=== PATIENT | female | born 1990 | race Caucasian/White ===

== ENCOUNTER 2020-11-18 08:20 | Outpatient (REF) | payer MEDICAID, SELFPAY | END 2020-11-18 08:21 | disposition home or self-care (01) | LOC: HO.LAB 08:20 | PROVIDERS: Visit Provider Internal Medicine | DX: Z20.828 Contact with and (suspected) exposure to other viral communicable diseases (principal) | CPT/HCPCS: C9803; U0003 ==

== ENCOUNTER 2021-02-10 14:09 | Outpatient (REF) | payer MEDICAID, SELFPAY | END 2021-02-10 14:10 | disposition home or self-care (01) | LOC: HO.LAB 14:09 | PROVIDERS: Visit Provider Internal Medicine | DX: Z20.822 Contact with and (suspected) exposure to COVID-19 (principal) | CPT/HCPCS: 36415; C9803; U0003; U0005 ==

== ENCOUNTER 2021-04-10 15:39 | Outpatient (REF) | payer MEDICAID, SELFPAY | END 2021-04-10 15:40 | disposition home or self-care (01) | LOC: HO.LAB 15:39 | PROVIDERS: Visit Provider Internal Medicine | DX: Z20.822 Contact with and (suspected) exposure to COVID-19 (principal) | CPT/HCPCS: C9803; U0003; U0005 ==

== ENCOUNTER 2021-04-14 08:41 | Outpatient (REF) | payer MEDICAID, SELFPAY | END 2021-04-14 08:42 | disposition home or self-care (01) | LOC: HO.LAB 08:41 | PROVIDERS: Visit Provider Internal Medicine | DX: Z20.822 Contact with and (suspected) exposure to COVID-19 (principal) | CPT/HCPCS: C9803; U0003; U0005 ==

== ENCOUNTER 2021-06-14 12:03 | Outpatient (REF) | payer MEDICAID, SELFPAY ==
--- NOTE | ~2021-06-14 | XR_ITS ---
EXAMINATION: XR KNEE, LEFT CLINICAL INFORMATION: Left knee pain, effusion. COMPARISON: None. TECHNIQUE: 4 views of the left knee. FINDINGS: Bones and soft tissues are normal. No fracture or joint effusion. Alignment is anatomic. Joint spaces are well maintained. No abnormal soft tissue calcification. XR/XR knee LT 4V IMPRESSION: Unremarkable examination. No joint effusion.
== END 2021-06-14 12:04 | disposition home or self-care (01) ==
LOC: HO.XRAY 12:03
PROVIDERS: Visit Provider Registered Nurse
DX: M25.462 Effusion, left knee (principal); M25.562 Pain in left knee
CPT/HCPCS: 73564

== ENCOUNTER 2021-11-09 11:06 | Outpatient (REF) | payer MEDICAID, SELFPAY | END 2021-11-09 11:07 | disposition home or self-care (01) | LOC: HO.LAB 11:06 | PROVIDERS: Visit Provider Internal Medicine | DX: Z20.822 Contact with and (suspected) exposure to COVID-19 (principal) | CPT/HCPCS: C9803; U0003; U0005 ==

== ENCOUNTER 2021-12-22 09:10 | Outpatient (REF) | payer MEDICAID, SELFPAY ==
[2021-12-22 09:21] LABS: Binax Internal Control QC Valid; Binax Now Covid-19 Ag Negative (Negative)
== END 2021-12-22 09:11 | disposition home or self-care (01) ==
LOC: HO.LAB 09:10
PROVIDERS: PCP Internal Medicine; Visit Provider Internal Medicine
DX: Z20.822 Contact with and (suspected) exposure to COVID-19 (principal)
CPT/HCPCS: C9803

== ENCOUNTER 2022-01-15 10:01 | Outpatient (REF) | payer MEDICAID, SELFPAY | END 2022-01-15 10:02 | disposition home or self-care (01) | LOC: HO.LAB 10:01 | PROVIDERS: PCP Internal Medicine; Visit Provider Obstetrics & Gynecology | DX: R87.610 Atypical squamous cells of undetermined significance on cytologic smear of cervix (ASC-US) (principal); R87.810 Cervical high risk human papillomavirus (HPV) DNA test positive | CPT/HCPCS: 57454; 88305 ==

== ENCOUNTER → 2022-02-01 13:28 | Outpatient (BNVA) | payer MEDICAID, SELFPAY | PROVIDERS: PCP Internal Medicine; Visit Provider Obstetrics & Gynecology | DX: D06.9 Carcinoma in situ of cervix, unspecified (principal) | CPT/HCPCS: 99212 ==

== ENCOUNTER 2022-02-15 10:26 | Day surgery (SDC) | payer MEDICAID, SELFPAY ==
--- NOTE | 2022-02-14 09:32 | P.CONAN_ITS ---
Documented by User: Niurka José NP 02/14/22 09:32 HPI - Anesthesia Eval Consult details Narrative: 31yo F for Cone LEEP with post ECC PMFSH Active Problems Active Problems: All Active Problems (Updated 02/09/22 @ 14:29 by Brigitte Randolph RN) ASCUS with positive high risk HPV cervical (Acute) RALPH III (cervical intraepithelial neoplasia grade III) with severe dysplasia (Acute) Past Medical History Medical History Headache Family History Family History Maternal Aunt Breast CA Ovarian ca Maternal Aunt No problems noted. Surgical History Surgical History H/O hernia repair H/O tubal ligation Social History Social History Patient Tobacco Use Status: Never used Tobacco Use of substances other than those prescribed or required for medical reasons: No Are you DNR?: No Advance Directives: No Advance Directives Information Provided: Yes Recently lost weight without trying: No Patient : No (tubal ligation, hcg neg) Meds Allergies Allergy/AdvReac Type Severity Reaction Status Date / Time No Known Allergies Allergy Unverified 02/09/22 14:29 [No Known Allergies*] Home Medications Medication Instructions Recorded Confirmed Last Taken Type amitriptyline 10 mg tablet 1 tab PO BEDTIME 02/09/22 02/09/22 Unknown History cholecalciferol (vitamin D3) 1,250 1 cap PO QWEEK 02/09/22 02/09/22 Unknown History mcg (50,000 unit) capsule naproxen 500 mg tablet 1 tab PO BID PRN 02/09/22 02/09/22 Unknown History sennosides 8.6 mg tablet (senna) 2 tab PO DAILY 02/09/22 02/09/22 Unknown History sumatriptan succinate 50 mg tablet 50 mg PO PRN 02/09/22 Unknown History Exam Exam Date and Time: February 14, 2022 0932 Assessment and Plan Assessment Anesthesia Assessment: Chart Reviewed Documented by User: Clark Pulido MD 02/15/22 10:58 [facility] Past Medical History Medical History Headache Family History Family History Maternal Aunt Breast CA Ovarian ca Maternal Aunt No problems noted. Family history of problems with anesthesia: No Surgical History Surgical History H/O hernia repair H/O tubal ligation History of Problems with Anesthesia: No Social History Social History Patient Tobacco Use Status: Never used Tobacco Use of substances other than those prescribed or required for medical reasons: No Are you DNR?: No Advance Directives: No Advance Directives Information Provided: Yes Recently lost weight without trying: No Patient : No (tubal ligation, hcg neg) Meds Allergies Allergy/AdvReac Type Severity Reaction Status Date / Time No Known Allergies Allergy Unverified 02/09/22 14:29 [No Known Allergies*] Home Medications Medication Instructions Recorded Confirmed Last Taken Type amitriptyline 10 mg tablet 1 tab PO BEDTIME 02/09/22 02/09/22 Unknown History cholecalciferol (vitamin D3) 1,250 1 cap PO QWEEK 02/09/22 02/09/22 Unknown History mcg (50,000 unit) capsule naproxen 500 mg tablet 1 tab PO BID PRN 02/09/22 02/09/22 Unknown History sennosides 8.6 mg tablet (senna) 2 tab PO DAILY 02/09/22 02/09/22 Unknown History sumatriptan succinate 50 mg tablet 50 mg PO PRN 02/09/22 Unknown History Exam Airway Mallampati Class: II TM Dist: >3cm Neck ROM: Full Assessment and Plan Assessment Anesthesia Assessment: Anesthesia Plan Discussed Final Anesthetic Review Family History of Problems with Anesthesia: No History of Problems with Anesthesia: No NPO: Yes ASA Class: II Final Preanesthetic Review: No Changes in Pt Med Stat, Meds/Allgs Chart Reviewed, Consent Obtained/Reviewed and Anes Risks/Benef Reviewed Patient Risk: Intermediate Procedure Risk: Low Anesthetic Plan Anesthetic Plan: GA Disposition: Standard PACU
[2022-02-15] VITALS (10 sets, daily range): BP systolic 111–119; BP diastolic 60–65; PULSE 50–69; RESP 15–18; TEMP 36–36.4; O2SAT 96–100; BMI 31.7
[2022-02-15 10:49] LABS: UPreg QC Valid YES; Urine Pregnancy NEGATIVE (NEGATIVE)
[2022-02-15] MEDS: Lactated Ringers 1,000 ML 100 ML IVCONT (11:07)
--- NOTE | 2022-02-15 11:18 | MHC.SHP ---
Pre-Procedural Eval Section A Date of Service: 02/15/22 The patient is an INPATIENT: No Changes since office visit: No Cold of Flu in the past 2 weeks, No New Medical Problems, No Changes in Medication and No Patient answered all questions The History & Physical has been completed within 30 days and I have reviewed it.: Yes Section B Chief Complaint: RALPH 3 Allergies: Allergies Allergy/AdvReac Type Severity Reaction Status Date / Time No Known Allergies Allergy Unverified 02/09/22 14:29 [No Known Allergies*] Plan Diagnosis/Plan: Unchanged I have reviewed the history and physical and performed a pertinent physical examination on my patient. No changes have occurred unless specified.
--- NOTE | 2022-02-15 12:03 | PM.OP ---
Brief Operative Note Date of Service: 02/15/22 Pre-op diagnosis: RALPH 3 Post-op diagnosis: same Procedure: LEEP CONE with post CONE ECC Surgeon: Jaswant Garcia MD Anesthesia: local and other (Paracervical block with MAC) Was an [employer] used for this Procedure?: No Estimated blood loss (mL): 0 Pathology: other (Ant+post Cerv lip, 2nd pass posterior cervical lip at 04:00 o'clock, Endocx, Post cone ECC) Condition: stable Disposition: other (Home)
--- NOTE | 2022-02-15 12:04 | W.PM.OPN ---
Operative Note Operative Note Date of Service: 02/15/22 Narrative: Preop diagnosis: RALPH 3 Operation: LEEP Cone with post cone ECC Post op diagnosis: same Anesthesia: paracervical block with MAC Complications: none Pathology: Anterior and Posterior cervical lip, posterior lip 2nd pass at 04:00 o'clock, with endocervix & post cone ECC QBL: minimal Procedure: The patient was put in the dorsal lithotomy position, was prepped and draped in the usual sterile fashion. A sterile speculum was inserted inside the patient vagina. Using Lugol solution the cervix with Dyed with Lugol solution to identifiy the abnormal demarcating line. 10 cc of Marcaine 0.5% with epinephrine were given at 2,4 , 8, and 10 o'clock. Using a medium-size loop wire, the anterior cervical lip was excised followed by the posterior cervical lip, followed by 2nd pass posterior cervical lip at 04:00 o'clock, excision of the endocervix, post cone ECC was done afterwards. Hemostasis was assured using cautery and Monsel solution. All instruments were taken out of the patient's vaginal cavity. the patient tolerated the procedure well and was discharged home with the following instructions: call if temperature is above 100.4, vaginal bleeding, abdominal pain or nausea or vomiting. Follow-up in the office in 2 weeks for postop visit
[2022-02-15] MEDS: fentaNYL citrate/PF 100 MCG/2 ML VIAL 50 MCG IVPUSH (12:39)
[2022-02-15] MEDS: oxyCODONE HCl Immed Release 5 MG TABLET PO (12:39)
== END 2022-02-15 13:36 | disposition home or self-care (01) ==
PROVIDERS: PCP Internal Medicine; Visit Provider Obstetrics & Gynecology
PROC: 0UBC7ZZ Excision of Cervix, Via Natural or Artificial Opening (ICD-10-PCS; CPT 57522; principal; 2022-02-15 12:30)
DX: D06.9 Carcinoma in situ of cervix, unspecified (principal); Z98.51 Tubal ligation status
CPT/HCPCS: 57522; 81025; 88305; 88307; J1100; J1885; J2250; J2405; J3010

== ENCOUNTER → 2022-03-01 13:15 | Outpatient (BNVA) | payer MEDICAID, SELFPAY | PROVIDERS: Visit Provider Obstetrics & Gynecology | DX: Z13.89 Encounter for screening for other disorder (principal) ==

== ENCOUNTER 2022-07-10 07:36 | Emergency (ER) | payer MEDICAID, SELFPAY ==
[2022-07-10 07:49] VITALS: BP 110/80; PULSE 76; RESP 18; TEMP 36.4; O2SAT 98; BMI 31.7
[2022-07-10 08:09] LABS: COVID-19 Test Negative (Negative)
[2022-07-10 09:02] VITALS: BP 116/67; PULSE 67; RESP 12; TEMP 36.4; O2SAT 99
--- NOTE | 2022-07-10 09:20 | PC.NURSE ---
Pt A&Ox4, LCA, abd soft, non tender, +BS, no edema, c/o joint pain which has been worsening over the past month. Saw PCP who has been treating her with medication. Plan for UA, labs and medication for mild migrane at this time. Call barry within reach, will continue to monitor.
--- NOTE | 2022-07-10 09:21 | ED_ITS ---
HPI - General Adult General Chief complaint: General Medical Stated complaint: Body aches Time Seen by Provider: 07/10/22 09:02 Source: patient and court interpreter Mode of arrival: ambulatory Limitations: language barrier History of Present Illness HPI narrative: 31-year-old female with a history of migraines presents with 1 month of body aches that are described as joint pain with swelling and stiffness especially in the morning which improves throughout the day. Feels like her rings on her fingers are to tight. Patient complaining of some intermittent headaches, nausea, dizziness and malaise. Patient saw her primary care doctor and had some outpatient labs which she tells me showed some mild anemia otherwise were normal. She was referred to pain management but has not seen them yet. She has not seen Rheumatology before. She does have several family members with rheumatoid arthritis. She denies any associated fevers, chills, cough, shortness of breath, chest pain, abdominal pain, vomiting, diarrhea, weight loss, night sweats. Patient denies any vaginal discharge, rashes or lesions. She does report some urinary frequency. She does have irregular menses. She has not had any sexual partners recently. She is sexually active with 1 male partner and last had intercourse about 3 weeks ago. She is not concerned about STDs Related Data Home Medications Medication Instructions Recorded Confirmed amitriptyline 10 mg tablet 1 tab PO BEDTIME 02/09/22 02/09/22 cholecalciferol (vitamin D3) 1,250 1 cap PO QWEEK 02/09/22 02/09/22 mcg (50,000 unit) capsule naproxen 500 mg tablet 1 tab PO BID PRN pain 02/09/22 02/09/22 sennosides 8.6 mg tablet (senna) 2 tab PO DAILY constipation 02/09/22 02/09/22 sumatriptan succinate 50 mg tablet 50 mg PO PRN Headache 02/09/22 Allergies Allergy/AdvReac Type Severity Reaction Status Date / Time No Known Allergies Allergy Unverified 02/09/22 14:29 [No Known Allergies*] Review of Systems Review of Systems: Yes all other systems are reviewed and are negative Constitutional: Constitutional: Reports no additional constitutional complaints, Reports body ache(s), Denies chills, Denies fever(s), Reports headache(s) and Denies weakness Eyes: Eyes: Reports no additional eye complaints and Denies change in vision ENT: Reports system reviewed and no additional complaints, except as documented, Denies dizziness, Reports headache(s), Denies nasal congestion, Denies nasal discharge and Denies neck pain Cardiovascular: Cardiovascular: Reports no additional cardiovascular co mplaints, Denies chest pain, Denies leg edema and Denies dyspnea Respiratory: Respiratory: Reports no additional respiratory complaints, Denies cough and Denies dyspnea Gastrointestinal: Gastrointestinal: Reports no additional gastrointestinal complaints, Denies abdominal pain, Denies diarrhea, Reports nausea and Denies vomiting Genitourinary: Genitourinary: Reports no additional female genitourinary complaints and Denies urinary incontinence Musculoskeletal: Musculoskeletal: Reports no additional musculoskeletal complaints, Denies back pain, Reports myalgias, Reports arthralgias, Reports joint swelling, Denies neck pain, Denies numbness and Denies tingling Integumentary/Breasts: Skin/Breast: Reports system reviewed and no additional complaints, except as docu and Denies rash Neurologic: Reports system reviewed and no additional complaints, except as documented, Denies dizziness, Reports headache(s), Denies numbness, Denies tingling and Denies weakness [facility] Past Medical History Attestation statement: The following information was validated with the patient. Source: old records reviewed and nursing notes reviewed Medical History Headache Surgical History H/O hernia repair H/O tubal ligation Family History Family History Maternal Aunt Breast CA Ovarian ca Maternal Aunt No problems noted. Social History Social History Patient Tobacco Use Status: Never used Tobacco Advance Directives: No Advance Directives Information Provided: No Physical Exam ED Vital Signs: Vital Signs - 24 hr 07/10/22 07:49 07/10/22 09:02 Temperature 97.6 F 97.6 F Pulse Rate 76 67 Respiratory Rate 18 12 Blood Pressure 110/80 116/67 Pulse Oximetry 98 99 Oxygen Delivery Method Room Air Room Air BMI result Body Mass Index 31.7 Const General: cooperative, healthy appearing, comfortable, no acute distress and al ert Orientation/consciousness: patient oriented x3 Limitations: language barrier HENMT Head: Yes normal to inspection Ears: hearing grossly normal bilaterally General nose exam: Normal external nose present Face and sinus: Yes normal facial exam Mouth: Normal oral and palatal mucosa present Throat: Yes posterior oropharynx normal, Yes tonsils normal and Yes uvula midline Eyes General: appearance normal, both eyes and all related structures Pupils: Equal, round and reactive pupils present Neck Neck: Yes normal visual inspection, Yes full ROM, Yes no lymphadenopathy and Yes no meningeal signs Chest Chest palpation & inspection: normal inspection of the chest Resp Effort & Inspection: normal respiratory effort Auscultation: clear to auscultation bilaterally Cardio Rate: regular rate Rhythm: regular rhythm Peripheral pulses: Peripheral pulses 2+ throughout GI Inspection: Yes normal to inspection Palpation (GI): Soft to palpation and nontender General: Yes no CVA tenderness Back/Spine/Pelvis Back: no CVA tenderness Thoracic/Lumbar Spine: thoracic and lumbar spine normal to inspection Skin General skin exam: no rashes or lesions noted Neuro General: patient oriented x3, moves all extremities and no meningeal signs Cranial nerves: Yes CN's II-XII intact bilaterally, Yes Equal, round and reactive pupils present, Yes Bilaterally intact EOM present, Yes Nystagmus not present, Yes Normal facial strength present and Yes Midline tongue present Cognition (Neuro): normal cognition Gait exam (Neuro): Normal gait present Motor exam (neuro): 5/5 motor strength present throughout Sensory Exam: Normal double simultaneous stimulation for sensation Extrem Other: Patient has tenderness to the hands and wrist which is worsened with range of motion there is some swelling noted over the digits with no redness or warmth. Patient also has some tenderness over the entire bilateral ankles with slight swelling with full range of motion although painful. No redness or warmth Course Course Course Narrative: Reviewed labs show mild a microcytic anemia. Patient can supplement with iron and iron rich diet. Otherwise her labs are unremarkable. Consider underlying rheumatoid arthritis or inflammatory process although patient's inflammatory markers are negative. I did recommend she speak to her primary care doctor about a rheumatology consult. Her UA is negative her STD testing is pending. Patient will hold on treatment until her results are back. Improvement with Toradol. Reviewed worrisome signs and symptoms of when to return to the emergency d epartment. Comfortable discharge home. Medical Decision Making [facility] Narrative Medical decision making narrative: 31-year-old female who is healthy presents with polyarthralgia for 1 month with associated malaise and fatigue. No reports of fevers or chills. Patient also complaining of some headaches and dizziness with position changes. Seen by PCP and had labs which patient tells me were normal but are not available for review. Patient has multiple the members with history of RA reportedly. Overall nontoxic. Vitals are stable. Will check labs, provide analgesia. Differential Diagnosis Differential Diagnosis: RA, gonococcal arthritis, viral syndrome Medical Records Medical records reviewed: Yes I reviewed the patient's medical records. Lab Data Lab results reviewed: Yes I reviewed the patient's lab results. Result diagrams: 07/10/22 09:43 07/10/22 09:43 Labs: Lab Results 07/10/22 07/10/22 07/10/22 Range/Units 07:50 09:43 09:43 WBC 5.0 (4.8-10.8) X10*3/uL RBC 4.31 (4.20-5.50) X10*6/uL Hgb 11.2 L (12.0-16.0) g/dl Hct 35.7 L (37.0-47.0) % MCV 82.8 (80.0-98.0) fL MCH 26.0 L (27.0-33.0) pg MCHC 31.4 (31.0-35.0) g/dl RDW 15.9 (11.0-16.0) % Plt Count 166 (160-400) X10*3/uL MPV 11.7 (9.4-12.3) fL Immature Gran % (Auto) 0.4 (0.0-0.4) % Neut % (Auto) 58.1 (45-73) % Lymph % (Auto) 27.6 (20-40) % [place] % (Auto) 11.5 H (2-11) % Eos % (Auto) 1.8 (0-4) % Baso % (Auto) 0.6 (0-2) % Lymph # (Auto) 1.4 (1.2-4.9) X10*3/uL [place] # (Auto) 0.6 (0.1-1.2) X10*3/uL Eos # (Auto) 0.1 (0.0-0.4) X10*3/uL Baso # (Auto) 0.0 (0.0-0.2) X10*3/uL Abs Immat Gran (auto) 0.02 (0.00-0.03) X10*3/uL Absolute Neuts (auto) 2.9 (2.0-8.3) x10*3/uL Absolute Nucleated RBC 0.000 (0.0-0.012) X10*3/uL Nucleated RBC % (auto) 0.0 (0.0-0.2) /100WBC ESR 5 (0-20) MM/HR Sodium (135-145) mmol/L Potassium (3.3-5.1) mmol/L Chloride (96-108) mmol/L Carbon Dioxide (22-29) mmol/L Anion Gap (12-20) BUN (9-16) mg/dL Creatinine (0.5-1.4) mg/dL Estim Creat Clear Calc Estimated GFR Random Glucose (60-115) mg/dL Calcium (8.4-10.2) mg/dL Magnesium (1.6-2.6) mg/dL Total Bilirubin (0.0-1.0) mg/dL Direct Bilirubin (0.0-0.5) mg/dL AST (5-31) U/L ALT (0-31) U/L Alkaline Phosphatase (39-117) U/L Total Creatine Kinase (26-140) U/L C-Reactive Protein (< or = 0.50) mg/dL Total Protein (6.5-8.0) g/dL Albumin (3.5-5.0) g/dL Urine Color Urine Appearance Urine pH (5.0-8.0) Ur Specific [place] (1.005-1.025) Urine Protein (NEG-TRACE) MG/DL Urine Glucose (UA) (NEG) MG/DL Urine Ketones (NEG) MG/DL Urine Blood (NEG) Urine Nitrite (NEG) Ur Leukocyte Esterase (NEG) Urine Test (NEGATIVE) COVID-19 (TYLOR) Negative (Negative) COVID-19 Clin Com See Note 07/10/22 07/10/22 07/10/22 Range/Units 09:43 12:29 12:29 WBC (4.8-10.8) X10*3/uL RBC (4.20-5.50) X10*6/uL Hgb (12.0-16.0) g/dl Hct (37.0-47.0) % MCV (80.0-98.0) fL MCH (27.0-33.0) pg MCHC (31.0-35.0) g/dl RDW (11.0-16.0) % Plt Count (160-400) X10*3/uL MPV (9.4-12.3) fL Immature Gran % (Auto) (0.0-0.4) % Neut % (Auto) (45-73) % Lymph % (Auto) (20-40) % [place] % (Auto) (2-11) % Eos % (Auto) (0-4) % Baso % (Auto) (0-2) % Lymph # (Auto) (1.2-4.9) X10*3/uL [place] # (Auto) (0.1-1.2) X10*3/uL Eos # (Auto) (0.0-0.4) X10*3/uL Baso # (Auto) (0.0-0.2) X10*3/uL Abs Immat Gran (auto) (0.00-0.03) X10*3/uL Absolute Neuts (auto) (2.0-8.3) x10*3/uL Absolute Nucleated RBC (0.0-0.012) X10*3/uL Nucleated RBC % (auto) (0.0-0.2) /100WBC ESR (0-20) MM/HR Sodium 140 (135-145) mmol/L Potassium 3.8 (3.3-5.1) mmol/L Chloride 106 (96-108) mmol/L Carbon Dioxide 26 (22-29) mmol/L Anion Gap 12 (12-20) BUN 13 (9-16) mg/dL Creatinine 0.68 (0.5-1.4) mg/dL Estim Creat Clear Calc 127.9 Estimated GFR > 60 Random Glucose 90 (60-115) mg/dL Calcium 9.0 (8.4-10.2) mg/dL Magnesium 1.7 (1.6-2.6) mg/dL Total Bilirubin 0.3 (0.0-1.0) mg/dL Direct Bilirubin < 0.2 (0.0-0.5) mg/dL AST 14 (5-31) U/L ALT 12 (0-31) U/L Alkaline Phosphatase 43 (39-117) U/L Total Creatine Kinase 100 (26-140) U/L C-Reactive Protein 0.24 (< or = 0.50) mg/dL Total Protein 6.6 (6.5-8.0) g/dL Albumin 4.1 (3.5-5.0) g/dL Urine Color YELLOW Urine Appearance CLEAR Urine pH 6.5 (5.0-8.0) Ur Specific [place] 1.020 (1.005-1.025) Urine Protein NEG (NEG-TRACE) MG/DL Urine Glucose (UA) NEG (NEG) MG/DL Urine Ketones NEG (NEG) MG/DL Urine Blood NEG (NEG) Urine Nitrite NEG (NEG) Ur Leukocyte Esterase NEG (NEG) Urine Test NEGATIVE (NEGATIVE) COVID-19 (TYLOR) (Negative) COVID-19 Clin Com Discharge Plan Discharge Clinical Impression: Joint pain, Iron deficiency anemia Patient Disposition: Home, Self-Care Instructions: Iron Rich Diet (ED), Iron Deficiency Anemia (ED), Arthralgia (ED) Additional Instructions: Your lab work today shows mild anemia. Your other blood work looks okay. We did send STD testing which will take several days to come back. You will be informed of these tests are positive. We discussed that you should speak to your primary care doctor about a rheumatology consult. You can take Motrin or Tylenol for pain as needed Prescriptions: No Action sennosides [senna] 8.6 mg tablet 2 tab PO DAILY sumatriptan succinate 50 mg tablet 50 mg PO PRN (Reason: Headache) amitriptyline 10 mg tablet 1 tab PO BEDTIME naproxen 500 mg tablet 1 tab PO BID PRN (Reason: pain) cholecalciferol (vitamin D3) 1,250 mcg (50,000 unit) capsule 1 cap PO QWEEK Referrals: Tika Mackenzie MD [Primary Care Provider] - 5 days Print Language: German
[2022-07-10] MEDS: Ketorolac Tromethamine 60 MG/2 ML VIAL IM (09:35)
[2022-07-10 09:46] LABS: MANUAL DIFF FLAG NO
[2022-07-10 09:51] LABS: Basophils Percent Auto 0.6 % (0-2); Eosinophils Absolute Auto 0.1 X10*3/uL (0.0-0.4); Eosinophils Percent Auto 1.8 % (0-4); Hematocrit 35.7 % (37.0-47.0); Hemoglobin 11.2 g/dl (12.0-16.0); Imm Gran Abs Auto 0.02 X10*3/uL (0.00-0.03); Imm Gran Pct Auto 0.4 % (0.0-0.4); Lymphocytes Absolute Auto 1.4 X10*3/uL (1.2-4.9); Lymphocytes Percent Auto 27.6 % (20-40); Mean Corpuscular HGB Conc 31.4 g/dl (31.0-35.0); Mean Corpuscular Volume 82.8 fL (80.0-98.0); Mean Platelet Volume 11.7 fL (9.4-12.3); Monocytes Absolute Auto 0.6 X10*3/uL (0.1-1.2); Monocytes Percent Auto 11.5 % (2-11); Neutrophils Absolute Auto 2.9 x10*3/uL (2.0-8.3); Neutrophils Percent Auto 58.1 % (45-73); Platelet Count 166 X10*3/uL (160-400); Red Blood Count 4.31 X10*6/uL (4.20-5.50); Red Cell Distribution Width 15.9 % (11.0-16.0)
[2022-07-10 10:06] LABS: Alanine Aminotransferase 12 U/L (0-31); Albumin Level 4.1 g/dL (3.5-5.0); Alkaline Phosphatase 43 U/L (39-117); Anion Gap 12 (12-20); Aspartate Amino Transferase 14 U/L (5-31); Bilirubin Direct < 0.2 mg/dL (0.0-0.5); Bilirubin Total 0.3 mg/dL (0.0-1.0); Blood Urea Nitrogen 13 mg/dL (9-16); C Reactive Protein 0.24 mg/dL (< or = 0.50); Carbon Dioxide 26 mmol/L (22-29); Chloride 106 mmol/L (96-108); Creatinine Clr Calc Pharmacy 127.9; Estimated Glomerular Filt Rate > 60; Glucose Random 90 mg/dL (60-115); Magnesium 1.7 mg/dL (1.6-2.6); Potassium 3.8 mmol/L (3.3-5.1); Sodium 140 mmol/L (135-145); Total Protein 6.6 g/dL (6.5-8.0)
[2022-07-10 10:30] LABS: Erythrocyte Sedimentation Rate 5 MM/HR (0-20)
[2022-07-10 12:55] LABS: Appearance Urine CLEAR; Color Urine YELLOW; Glucose Urine UA NEG (NEG); Leukocyte Esterase Urine NEG (NEG); Nitrite Urine NEG (NEG); PH 6.5 (5.0-8.0); Urine Blood NEG (NEG); Urine Ketones NEG (NEG); Urine Protein NEG (NEG-TRACE)
[2022-07-10 12:58] LABS: UPreg QC Valid YES; Urine Pregnancy NEGATIVE (NEGATIVE)
[2022-07-10 14:55] LABS: CT PCR NOT DETECTED (Not Detect.); NG PCR NOT DETECTED (Not Detect.)
== END 2022-07-10 14:05 | disposition home or self-care (01) ==
PROVIDERS: Nurse Practitioner Family; Emergency Provider Student in an Organized Health Care Education/Training Program; PCP Internal Medicine
DX: M25.50 Pain in unspecified joint (principal); D50.9 Iron deficiency anemia, unspecified; Z20.822 Contact with and (suspected) exposure to COVID-19
CPT/HCPCS: 36415; 80048; 80076; 81003; 81025; 82550; 83735; 85025; 85652; 86140; 87491; 87591; 87635; 96372; 99284; J1885

== ENCOUNTER 2023-01-28 09:37 | Outpatient (REF) | payer MEDICAID, SELFPAY ==
[2023-01-31 00:54] LABS: HPV mRNA E6/E7 rflx Not Detected (Not Detected)
== END 2023-01-28 09:38 | disposition home or self-care (01) ==
LOC: HO.LNP 09:37
PROVIDERS: PCP Internal Medicine; Visit Provider Obstetrics & Gynecology
DX: Z01.419 Encounter for gynecological examination (general) (routine) without abnormal findings (principal); Z11.51 Encounter for screening for human papillomavirus (HPV); D06.9 Carcinoma in situ of cervix, unspecified
CPT/HCPCS: 87624; 88142; 99212

== ENCOUNTER 2023-04-16 14:35 | Outpatient (REF) | payer MEDICAID, SELFPAY ==
--- NOTE | ~2023-04-16 | US_ITS ---
EXAMINATION: US VENOUS ULTRASOUND WITH DOPPLER LOWER EXTREMITY, LEFT CLINICAL INFORMATION: Pain and swelling COMPARISON: None available. TECHNIQUE: Ultrasound of the deep veins is performed from the hip to the calf with compression sonography and color and pulse Doppler assessment. Spectral analysis with color-flow imaging is performed. FINDINGS: There is normal venous compression and respiratory variation and augmented flow. The visualized common femoral vein, superficial femoral vein, profunda femoral vein, popliteal vein, and the trifurcation region shows no evidence of deep venous thrombosis. There is no significant popliteal fossa cyst. US/US venous duplex LE LT IMPRESSION: No DVT demonstrated in the left lower extremity.
== END 2023-04-16 14:36 | disposition home or self-care (01) ==
LOC: HO.US 14:35
PROVIDERS: Visit Provider Emergency Medicine
DX: R60.0 Localized edema (principal)
CPT/HCPCS: 93971

== ENCOUNTER 2023-06-11 15:24 | Outpatient (REF) | payer MEDICAID, SELFPAY ==
[2023-06-11 17:49] LABS: MANUAL DIFF FLAG NO
[2023-06-11 18:20] LABS: Estimated Average Glucose 103 mg/dL; Hemoglobin A1c % 5.2 %
[2023-06-11 18:30] LABS: Basophils Percent Auto 0.5 % (0-2); Eosinophils Absolute Auto 0.1 X10*3/uL (0.0-0.4); Eosinophils Percent Auto 0.9 % (0-4); Hemoglobin 11.6 g/dl (12.0-16.0); Imm Gran Abs Auto 0.03 X10*3/uL (0.00-0.03); Imm Gran Pct Auto 0.4 % (0.0-0.4); Lymphocytes Absolute Auto 1.7 X10*3/uL (1.2-4.9); Lymphocytes Percent Auto 22.5 % (20-40); Mean Corpuscular HGB Conc 32.2 g/dl (31.0-35.0); Mean Corpuscular Hemoglobin 27.6 pg (27.0-33.0); Mean Corpuscular Volume 85.5 fL (80.0-98.0); Mean Platelet Volume 12.1 fL (9.4-12.3); Monocytes Absolute Auto 0.6 X10*3/uL (0.1-1.2); Monocytes Percent Auto 7.1 % (2-11); Neutrophils Absolute Auto 5.3 x10*3/uL (2.0-8.3); Neutrophils Percent Auto 68.6 % (45-73); Platelet Count 172 X10*3/uL (160-400); Red Blood Count 4.21 X10*6/uL (4.20-5.50); Red Cell Distribution Width 13.4 % (11.0-16.0); Rheumatoid Factor < 13.0 IU/mL (<15.0); White Blood Count 7.7 X10*3/uL (4.8-10.8)
[2023-06-11 18:31] LABS: Alanine Aminotransferase 24 U/L (0-31); Albumin Level 4.1 g/dL (3.5-5.0); Alkaline Phosphatase 51 U/L (39-117); Anion Gap 11 (12-20); Aspartate Amino Transferase 21 U/L (5-31); Bilirubin Direct < 0.2 mg/dL (0.0-0.5); Bilirubin Total 0.2 mg/dL (0.0-1.0); Blood Urea Nitrogen 13 mg/dL (9-16); Calcium 10.1 mg/dL (8.4-10.2); Carbon Dioxide 24 mmol/L (22-29); Chloride 106 mmol/L (96-108); Cholesterol 137 mg/dL; Estimated Glomerular Filt Rate > 60; Glucose Random 80 mg/dL (60-115); HDL Cholesterol 48 mg/dL; LDL Cholesterol Calculated 76 mg/dl; Potassium 3.8 mmol/L (3.3-5.1); Sodium 137 mmol/L (135-145); Total Protein 6.9 g/dL (6.5-8.0); Triglycerides 69 mg/dL
[2023-06-11 18:48] LABS: Vitamin D 25-OH Total 43.4 ng/mL (>30)
[2023-06-11 18:54] LABS: Folate 9.9 ng/mL (> or = 4.0); Vitamin B12 545 pg/mL (200-900)
[2023-06-11 18:58] LABS: Erythrocyte Sedimentation Rate 5 MM/HR (0-20)
[2023-06-11 19:18] LABS: Free T4 (Free Thyroxine) 0.98 ng/dL (0.71-1.85)
[2023-06-14 17:28] LABS: Homocysteine 7.8 umol/L (<10.4)
[2023-06-18 07:28] LABS: Methylmalonic Acid 105 nmol/L (87-318)
== END 2023-06-11 15:25 | disposition home or self-care (01) ==
LOC: HO.HHCL 15:24
PROVIDERS: Visit Provider Internal Medicine
DX: M79.7 Fibromyalgia (principal)
CPT/HCPCS: 36415; 80048; 80061; 80076; 82306; 82607; 82746; 83036; 83090; 83921; 84439; 84443; 85025; 85652; 86140; 86431

== ENCOUNTER 2023-07-15 15:05 | Emergency (ER) | payer MEDICAID, SELFPAY ==
[2023-07-15 15:32] VITALS: BP 122/81; PULSE 78; RESP 16; TEMP 36.8; O2SAT 99; BMI 29.5
--- NOTE | 2023-07-15 15:33 | ED_ITS ---
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 ? Patient reports that she has had pain to entire body since last , 5 days ago. She reports increased thirst, weakness and dizziness. She reports that she went to her primary care clinic? he was told to come here. ? She states ?usually they tell me I am dehydrated and give me IV fluids. ? Denies any fevers, chills, cough, shortness of breath, nausea vomiting, diarrhea Patient denies any medication changes in the last 3 months She also reports a history of any Denies any sick contacts Related Data Home Medications Medication Instructions Recorded Confirmed amitriptyline 10 mg tablet 1 tab PO BEDTIME 02/09/22 02/09/22 cholecalciferol (vitamin D3) 1,250 1 cap PO QWEEK 02/09/22 02/09/22 mcg (50,000 unit) capsule naproxen 500 mg tablet 1 tab PO BID PRN pain 02/09/22 02/09/22 sennosides 8.6 mg tablet (senna) 2 tab PO DAILY constipation 02/09/22 02/09/22 sumatriptan succinate 50 mg tablet 50 mg PO PRN Headache 02/09/22 Allergies Allergy/AdvReac Type Severity Reaction Status Date / Time No Known Allergies Allergy Unverified 01/28/23 09:57 [No Known Allergies*] Review of Systems Constitutional: Constitutional: Reports as per HPI, Denies chills and Denies fever(s) Cardiovascular: Cardiovascular: Denies chest pain and Denies dyspnea Respiratory: Respiratory: Denies cough and Denies dyspnea Gastrointestinal: Gastrointestinal: Denies abdominal pain, Denies constipation and Denies vomiting Genitourinary: Genitourinary: Denies dysuria Neurologic: Denies focal weakness PMF Past Medical History Medical History Headache Surgical History H/O hernia repair H/O tubal ligation Family History Family History Maternal Aunt Breast CA Ovarian ca Maternal Aunt No problems noted. Social History Social History Patient Tobacco Use Status: Never used Tobacco Advance Directives: No Advance Directives Information Provided: Yes Physical Exam Vital Signs: Vital Signs: Last Vital Signs Temp 98.6 F 07/15/23 20:43 Pulse 70 07/15/23 21:14 Resp 16 07/15/23 20:43 BP 124/82 07/15/23 21:14 Pulse Ox 98 07/15/23 20:43 O2 Del Method Room Air 07/15/23 20:43 BMI result Body Mass Index 29.5 Const: General: healthy appearing, comfortable, no acute distress, alert and awake Nutritional Appearance: well nourished Orientation/consciousness: patient oriented x3 HEENT: Head: Yes normocephalic and Yes atraumatic Eyes: Eyelids: Yes eyelids normal Conjunctivae: conjunctivae normal Sclerae: sclerae normal Corneas: corneas normal Pupils: Equal, round and reactive pupils present EOM: EOMs intact bilaterally Neck: Neck: Yes full ROM Resp: Effort & Inspection: normal respiratory effort, able to speak in complete sentences and not labored Cardio: Rate: regular rate Rhythm: regular rhythm GI: Inspection: No distended Palpation (GI): Soft to palpation, not firm, nontender, no guarding and not rigid Skin: General skin exam: no rashes or lesions noted and elasticity normal Neuro: General: patient oriented x3 Cranial nerves: Yes CN's II-XII intact bilaterally, Yes Equal, round and reactive pupils present and Yes Bilaterally intact EOM present Cognition (Neuro): normal cognition Course Course Course Narrative: RME: 32-year-old female with a past medical history of anemia, fibromyalgia presenting to the ED complaining of fatigue, myalgias, dry mouth, polydipsia x5 days. Also reports STALEY and lightheadedness x today. Denies fever, congestion, sick contacts Labs, UA, viral testing ordered Full HPI, ROS and PE to be performed by primary ED provider. Reevaluation(s) Reevaluation #1: No evidence of orthostatic hypotension Time: 21:36 Medications Administered Discontinued Medications Generic Name Dose Route Start Last Admin Trade Name Nicola PRN Reason Stop Dose Admin Tramadol HCl 50 mg 07/15/23 21:07 07/15/23 21:17 Tramadol Hcl 50 Mg Tablet PO 07/15/23 21:08 50 mg ONCE ONE Administration Medical Decision Making Medical Decision Making [facility] Narrative: 32-year-old female presents for evaluation of multiple complaints including headache, dizziness and body aches. Her workup is insignificant for any acute findings. She has a hemoglobin 11.9, just below the normal threshold but has a history of anemia. This is a normocytic anemia. Chloride is just above normal at 109. Electrolytes are otherwise reassuring. Patient viral swabs that were negative, UA negative. Patient's vitals are stable but will assess orthostatics. Will treat the patient's pain, but I do not see any indication for further emergent workup. Differential Diagnosis Differential Diagnoses: The differential diagnosis associated with the presentation includes Mode fibromyalgia Arthralgias Viral syndrome COVID-19 Dehydration MAGDA Lab Data [facility] Lab Attestation statement: I reviewed the patient's lab results. No leukocytosis or left shift. Hemoglobin just below normal at 11.9 with normal hematocrit of 37.3. Platelet count normal. Sodium potassium within normal limits, chloride just above normal at 109. Renal function within normal limits. 07/15/23 16:13 07/15/23 16:13 Labs: Lab Results 07/15/23 07/15/23 07/15/23 Range/Units 16:13 16:13 16:13 WBC 6.9 (4.8-10.8) X10*3/uL RBC 4.38 (4.20-5.50) X10*6/uL Hgb 11.9 L (12.0-16.0) g/dl Hct 37.3 (37.0-47.0) % MCV 85.2 (80.0-98.0) fL MCH 27.2 (27.0-33.0) pg MCHC 31.9 (31.0-35.0) g/dl RDW 13.4 (11.0-16.0) % Plt Count 181 (160-400) X10*3/uL MPV 12.0 (9.4-12.3) fL Immature Gran % (Auto) 0.1 (0.0-0.4) % Neut % (Auto) 60.8 (45-73) % Lymph % (Auto) 27.2 (20-40) % [place] % (Auto) 10.1 (2-11) % Eos % (Auto) 1.2 (0-4) % Baso % (Auto) 0.6 (0-2) % Lymph # (Auto) 1.9 (1.2-4.9) X10*3/uL [place] # (Auto) 0.7 (0.1-1.2) X10*3/uL Eos # (Auto) 0.1 (0.0-0.4) X10*3/uL Baso # (Auto) 0.0 (0.0-0.2) X10*3/uL Abs Immat Gran (auto) 0.01 (0.00-0.03) X10*3/uL Absolute Neuts (auto) 4.2 (2.0-8.3) x10*3/uL Absolute Nucleated RBC 0.000 (0.0-0.012) X10*3/uL Nucleated RBC % (auto) 0.0 (0.0-0.2) /100WBC Sodium 140 (135-145) mmol/L Potassium 3.8 (3.3-5.1) mmol/L Chloride 109 H (96-108) mmol/L Carbon Dioxide 25 (22-29) mmol/L Anion Gap 10 L (12-20) BUN 14 (9-16) mg/dL Creatinine 0.83 (0.5-1.4) mg/dL Estim Creat Clear Calc 107.6 Estimated GFR > 60 POC Glucose (60-115) mg/dL Random Glucose 89 (60-115) mg/dL Calcium 9.5 (8.4-10.2) mg/dL Magnesium 2.0 (1.6-2.6) mg/dL Total Bilirubin 0.2 (0.0-1.0) mg/dL Direct Bilirubin < 0.2 (0.0-0.5) mg/dL AST 18 (5-31) U/L ALT 22 (0-31) U/L Alkaline Phosphatase 44 (39-117) U/L Total Protein 7.4 (6.5-8.0) g/dL Albumin 4.3 (3.5-5.0) g/dL Urine Color Urine Appearance Urine pH (5.0-9.0) Ur Specific [place] (1.005-1.025) Urine Protein (Neg-Trace) mg/dL Urine Glucose (UA) (Negative) mg/dL Urine Ketones (Negative) mg/dL Urine Blood (Negative) Urine Nitrite (Negative) Ur Leukocyte Esterase (Negative) COVID-19 (TYLOR) (Negative) COVID-19 Clin Com Influenza Type A (GABRIELE) Negative (Negative) Influenza Type B (GABRIELE) Negative (Negative) Influenza A & B Note See Note 07/15/23 07/15/23 07/15/23 Range/Units 16:13 20:45 20:53 WBC (4.8-10.8) X10*3/uL RBC (4.20-5.50) X10*6/uL Hgb (12.0-16.0) g/dl Hct (37.0-47.0) % MCV (80.0-98.0) fL MCH (27.0-33.0) pg MCHC (31.0-35.0) g/dl RDW (11.0-16.0) % Plt Count (160-400) X10*3/uL MPV (9.4-12.3) fL Immature Gran % (Auto) (0.0-0.4) % Neut % (Auto) (45-73) % Lymph % (Auto) (20-40) % [place] % (Auto) (2-11) % Eos % (Auto) (0-4) % Baso % (Auto) (0-2) % Lymph # (Auto) (1.2-4.9) X10*3/uL [place] # (Auto) (0.1-1.2) X10*3/uL Eos # (Auto) (0.0-0.4) X10*3/uL Baso # (Auto) (0.0-0.2) X10*3/uL Abs Immat Gran (auto) (0.00-0.03) X10*3/uL Absolute Neuts (auto) (2.0-8.3) x10*3/uL Absolute Nucleated RBC (0.0-0.012) X10*3/uL Nucleated RBC % (auto) (0.0-0.2) /100WBC Sodium (135-145) mmol/L Potassium (3.3-5.1) mmol/L Chloride (96-108) mmol/L Carbon Dioxide (22-29) mmol/L Anion Gap (12-20) BUN (9-16) mg/dL Creatinine (0.5-1.4) mg/dL Estim Creat Clear Calc Estimated GFR POC Glucose 67 (60-115) mg/dL Random Glucose (60-115) mg/dL Calcium (8.4-10.2) mg/dL Magnesium (1.6-2.6) mg/dL Total Bilirubin (0.0-1.0) mg/dL Direct Bilirubin (0.0-0.5) mg/dL AST (5-31) U/L ALT (0-31) U/L Alkaline Phosphatase (39-117) U/L Total Protein (6.5-8.0) g/dL Albumin (3.5-5.0) g/dL Urine Color Yellow Urine Appearance Clear Urine pH 6.0 (5.0-9.0) Ur Specific [place] 1.025 (1.005-1.025) Urine Protein Negative (Neg-Trace) mg/dL Urine Glucose (UA) Negative (Negative) mg/dL Urine Ketones Negative (Negative) mg/dL Urine Blood Negative (Negative) Urine Nitrite Negative (Negative) Ur Leukocyte Esterase Negative (Negative) COVID-19 (TYLOR) Negative (Negative) COVID-19 Clin Com See Note Influenza Type A (GABRIELE) (Negative) Influenza Type B (GABRIELE) (Negative) Influenza A & B Note Discharge Plan Discharge Clinical Impression: Headache, Dizziness Patient Disposition: Home, Self-Care Instructions: Acute Headache (ED) Additional Instructions: Your workup in the emergency department today was reassuring. There is no indication that you are dehydrated. Your urine sample did not show signs of infection You tested negative for COVID-19 and influenza Take all of your medications as prescribed You may also use Motrin/Tylenol for headaches Follow-up with your primary doctor and return for new or worsening symptoms Prescriptions: No Action sennosides [senna] 8.6 mg tablet 2 tab PO DAILY sumatriptan succinate 50 mg tablet 50 mg PO PRN (Reason: Headache) amitriptyline 10 mg tablet 1 tab PO BEDTIME naproxen 500 mg tablet 1 tab PO BID PRN (Reason: pain) cholecalciferol (vitamin D3) 1,250 mcg (50,000 unit) capsule 1 cap PO QWEEK
[2023-07-15 16:16] LABS: MANUAL DIFF FLAG NO
[2023-07-15 16:22] LABS: Basophils Percent Auto 0.6 % (0-2); Eosinophils Absolute Auto 0.1 X10*3/uL (0.0-0.4); Eosinophils Percent Auto 1.2 % (0-4); Hematocrit 37.3 % (37.0-47.0); Hemoglobin 11.9 g/dl (12.0-16.0); Imm Gran Abs Auto 0.01 X10*3/uL (0.00-0.03); Imm Gran Pct Auto 0.1 % (0.0-0.4); Lymphocytes Absolute Auto 1.9 X10*3/uL (1.2-4.9); Lymphocytes Percent Auto 27.2 % (20-40); Mean Corpuscular HGB Conc 31.9 g/dl (31.0-35.0); Mean Corpuscular Hemoglobin 27.2 pg (27.0-33.0); Mean Corpuscular Volume 85.2 fL (80.0-98.0); Monocytes Absolute Auto 0.7 X10*3/uL (0.1-1.2); Monocytes Percent Auto 10.1 % (2-11); Neutrophils Absolute Auto 4.2 x10*3/uL (2.0-8.3); Neutrophils Percent Auto 60.8 % (45-73); Platelet Count 181 X10*3/uL (160-400); Red Blood Count 4.38 X10*6/uL (4.20-5.50); Red Cell Distribution Width 13.4 % (11.0-16.0); White Blood Count 6.9 X10*3/uL (4.8-10.8)
[2023-07-15 16:37] LABS: COVID-19 Test Negative (Negative); IDNOW Serial# 08D9AD1C; IDNOW Serial# BCCEAD1C; Influenza A Negative (Negative); Influenza B2 Negative (Negative)
[2023-07-15 16:46] LABS: Alanine Aminotransferase 22 U/L (0-31); Albumin Level 4.3 g/dL (3.5-5.0); Alkaline Phosphatase 44 U/L (39-117); Anion Gap 10 (12-20); Aspartate Amino Transferase 18 U/L (5-31); Bilirubin Direct < 0.2 mg/dL (0.0-0.5); Bilirubin Total 0.2 mg/dL (0.0-1.0); Blood Urea Nitrogen 14 mg/dL (9-16); Calcium 9.5 mg/dL (8.4-10.2); Carbon Dioxide 25 mmol/L (22-29); Chloride 109 mmol/L (96-108); Creatinine Clr Calc Pharmacy 107.6; Estimated Glomerular Filt Rate > 60; Glucose Random 89 mg/dL (60-115); Potassium 3.8 mmol/L (3.3-5.1); Sodium 140 mmol/L (135-145); Total Protein 7.4 g/dL (6.5-8.0)
[2023-07-15 20:43] VITALS: BP 123/72; PULSE 63; RESP 16; TEMP 37; O2SAT 98
--- NOTE | 2023-07-15 20:53 | MHC.EDTECH ---
this pct assumed care of patient at this this time ,vitals sign taken ,blood sugar check and urine sample collected and sent to lab .
[2023-07-15 21:01] LABS: Appearance Urine Clear; Color Urine Yellow; Glucose Urine UA Negative (Negative); Leukocyte Esterase Urine Negative (Negative); Nitrite Urine Negative (Negative); Specific Gravity - Urine 1.025 (1.005-1.025); Urine Blood Negative (Negative); Urine Ketones Negative (Negative); Urine Protein Negative (Neg-Trace)
[2023-07-15 21:10] VITALS: BP 109/64; PULSE 67
[2023-07-15 21:10] LABS: Glucose, Whole Blood 67 mg/dL (60-115)
[2023-07-15 21:13] VITALS: BP 114/73; PULSE 72
[2023-07-15 21:14] VITALS: BP 124/82; PULSE 70
--- NOTE | 2023-07-15 21:16 | MHC.EDTECH ---
PATIENT ORTHOSTATIC VITALS SIGN TAKEN .
[2023-07-15] MEDS: traMADoL HCL 50 MG TABLET PO (21:17)
== END 2023-07-15 21:48 | disposition home or self-care (01) ==
PROVIDERS: Physician Assistant; Emergency Provider Internal Medicine; PCP Internal Medicine
DX: R42 Dizziness and giddiness (principal); R51.9 Headache, unspecified; Z20.822 Contact with and (suspected) exposure to COVID-19
CPT/HCPCS: 80048; 80076; 81003; 82947; 83735; 85025; 87502; 87635; 99283; 99284